=== PATIENT | female | born 1995 | race Two or more races ===

== ENCOUNTER 2017-05-17 06:41 | Emergency (ER) | payer OTHER ==
[~2017-05-17] VITALS: Ht 170.2 cm; Wt 122.5 kg
[2017-05-17 06:45] VITALS: Ht 170.2 cm; Wt 122.5 kg
[2017-05-17 09:01] VITALS: BP 138/97
== END 2017-05-17 09:01 | disposition home or self-care (01) ==
LOC: ED 06:41
DX: M54.9 Dorsalgia, unspecified (principal); E11.9 Type 2 diabetes mellitus without complications
CPT/HCPCS: J1885; J2270